=== PATIENT | female | born 1945 | race African-American/Black ===

== ENCOUNTER 2017-09-18 14:43 | Emergency (ER) | payer MEDICARE ==
[~2017-09-18] VITALS: Ht 162.6 cm; Wt 63.5 kg
[2017-09-18 14:49] VITALS: BP 116/65
--- NOTE | 2017-09-18 14:54 | Emergency Room Report ---
History of Present Illness General Chief Complaint: General Complaint Source: Patient, Family Member, Medical Record Present Illness HPI 80-year-old female, history of COPD, hypertension, ? Atrial fibrillation diagnosed last month, recent hospitalization at [facility] for one month for pneumonia, coming from [facility] for decreased oral intake and generalized weakness. Patient w/ dec appetite, and able to eat a mouth, feeling very weak. Some nausea no vomiting. No chest pain shortness of breath or abdominal pain. No diarrhea Per EMS patient was found to have a blood sugar of 72, glucose 1 was given by the [facility], on their arrival her blood sugar was 84. Her mental status is ANO x3 and conversing however just very weak. Allergies: Coded Allergies: ASPIRIN (Verified Allergy, Intermediate, 09/18/17) Patient History Past Medical History: see triage record Past Surgical History: none Pertinent Family History: none Reviewed Nursing Documentation: PMH: Agreed, PSxH: Agreed Nursing Documentation-PMH Hx Cardiac Problems: Yes - A-fib; CHF; High Cholesterol; Hypokalemia Hx Hypertension: Yes Hx COPD: Yes - Pneumonia 07/2017 Hx Diabetes: Yes Review of Systems All Other Systems: negative except mentioned in HPI Physical Exam Vital Signs Date Time Temp Pulse Resp B/P (MAP) Pulse Ox O2 Delivery O2 Flow Rate FiO2 09/18/17 14:34 97.3 60 20 96/58 60 Nasal Cannula 2.0 Sp02 EP Interpretation: reviewed, normal General Appearance: alert, mild distress, thin, other - aox3 conversing, appears fatigued Head: normocephalic, atraumatic Eyes: bilateral eye normal inspection, bilateral eye PERRL, bilateral eye EOMI ENT: normal ENT inspection, normal pharynx, normal voice, moist mucus membranes Neck: normal inspection, full range of motion, supple Respiratory: respiratory distress, speaking full sentences, other - dec breath sounds L side, chest symmetrical Cardiovascular #1: normal inspection, regular rate, rhythm, normal capillary refill Cardiovascular #2: 2+ radial (R), 2+ radial (L) Gastrointestinal: normal inspection, non tender, soft, non-distended, no guarding Musculoskeletal: normal inspection, back normal, normal range of motion, non- tender Neurologic: normal inspection, alert, oriented x3, responsive, aerotriangulation specialist III-XII nml as tested, motor strength/tone normal, sensory intact, speech normal Psychiatric: normal inspection, judgement/insight normal, memory normal Skin: normal inspection, normal color, no rash, warm/dry, well hydrated, normal turgor Procedures Critical Care Time Critical Care Time 40 minutes of CC time 72-year-old female, generalized weakness NSTEMI, renal failure VS: BORDERLINE Hypotensive PLAN: IV access, labs, lactate, troponin, Blood/Urine Cx, Abx, IVF Anticipate admission to Tele vs. CEDRIC CC time also includes review of labs, review of EMR, discussion with family and paperwork from SNF, d/w hospitalist CC could include dosing of pressors, additional Abx CC time does not include procedures Medical Decision Making Diagnostic Impression: Primary Impression: Generalized weakness Additional Impressions: Decreased oral intake Pneumonia involving left lung NSTEMI (non-ST elevated myocardial infarction) Hyperkalemia Chronic kidney disease Elevated liver enzymes Anemia DNR (do not resuscitate) DNI (do not intubate) ER Course 72-year-old female, decreased oral intake, generalized weakness DDX: Hypovolemia, dehydration, electrolyte disturbance failure to thrive Infectious: UTI/pneumonia Cardiac Plan: Obtain labs, ua, EKG, CXR IV fluids ER course: Patient left-sided pneumonia, treated with vancomycin and cefepime Initially hypotensive but blood pressure improved with fluids Elevated troponin, no STEMI on EKG, aspirin given. I spoke to patient and son, patient does not have any history of rash, anaphylaxis to aspirin heparin + drip started creatinine noted to be elevated --- son states they were seeing shell mold bonder to get dialysis soon. she still makes urine. Hyperkalemia cocktail given patient without emergent need for dialysis at this time but will need soon inpatient. Disposition: Patient is to be admitted to telemetry D/W hospitalist Dr Jennings. Please note that this Emergency Department Report was dictated using Mailsuitedeb[employer] collection specialist technology software, occasionally this can lead to erroneous entry secondary to interpretation by the dictation equipment. EKG Diagnostic Results EP Interpretation: Yes Rate: normal Rhythm: NSR ST Segments: TW flattening lateral leads ASA given to patient: Y Rhythm Strip EP Interpretation: Yes Rate: 80 Rhythm: NSR, no PVCs, no ectopy Chest X-ray CXR: Ordered: Yes 1 view Indication: sob EP interpretation: Yes Interpretation: +L sided pna Impression: +L sided pna Electronically signed by Jackie Moore MD Laboratory Tests Test 09/18/17 15:15 09/18/17 15:18 White Blood Count 14.9 K/UL (4.8-10.8) H Red Blood Count 2.99 M/UL (4.20-5.40) L Hemoglobin 9.1 G/DL (12.0-16.0) L Hematocrit 28.6 % (37.0-47.0) L Mean Corpuscular Volume 96 FL (80-99) Mean Corpuscular Hemoglobin 30.4 PG (27.0-31.0) Mean Corpuscular Hemoglobin Concent 31.8 G/DL (32.0-36.0) L Red Cell Distribution Width 16.5 % (11.6-14.8) H Platelet Count 124 K/UL (150-450) L Mean Platelet Volume 10.4 FL (6.5-10.1) H Neutrophils (%) (Auto) 82.8 % (45.0-75.0) H Lymphocytes (%) (Auto) 7.4 % (20.0-45.0) L Monocytes (%) (Auto) 7.6 % (1.0-10.0) Eosinophils (%) (Auto) 0.0 % (0.0-3.0) Basophils (%) (Auto) 2.2 % (0.0-2.0) H Prothrombin Time 15.9 SEC (9.30-11.50) H Prothrombin Time INR 1.5 (0.9-1.1) H PTT 52 SEC (23-33) H Lactic Acid Level 2.00 mmol/L (0.66-2.22) Troponin I 1.011 ng/mL (0.000-0.056) Sodium Level 137 MMOL/L (136-145) Potassium Level 6.5 MMOL/L (3.5-5.1) *H Chloride Level 99 MMOL/L (98-107) Carbon Dioxide Level 20 MMOL/L (21-32) L Anion Gap 18 mmol/L (5-15) H Blood Urea Nitrogen 173 mg/dL (7-18) H Creatinine 8.3 MG/DL (0.55-1.30) H Estimate Glomerular Filtration Rate mL/min (>60) Glucose Level 77 MG/DL (74-106) Calcium Level Pending Total Bilirubin 4.0 MG/DL (0.2-1.0) H Direct Bilirubin 3.0 MG/DL (0.0-0.3) H Aspartate Amino Transferase (AST) 1530 U/L (15-37) H Alanine Aminotransferase (ALT) 480 U/L (12-78) H Alkaline Phosphatase 530 U/L (46-116) H Pro-B-Type Natriuretic Peptide 3896 pg/mL (0-125) H Total Protein 6.7 G/DL (6.4-8.2) Albumin 1.6 G/DL (3.4-5.0) L Globulin 5.1 g/dL Albumin/Globulin Ratio 0.3 (1.0-2.7) L Microbiology Date/Time Source Procedure Growth Status 09/18/17 15:15 Nasal Nares Influenza Types A,B Antigen (MAC) - Final Complete Last Vital Signs Date Time Temp Pulse Resp B/P (MAP) Pulse Ox O2 Delivery O2 Flow Rate FiO2 09/18/17 14:34 97.3 60 20 96/58 60 Nasal Cannula 2.0 Disposition: ADMITTED INPATIENT Condition: Serious Jackie Moore M.D. Sep 18, 2017 14:54
[2017-09-18 15:51] LABS: BASOPHILS % (AUTO) 2.2 % (0.0-2.0); HEMATOCRIT 28.6 % (37.0-47.0); HEMOGLOBIN 9.1 G/DL (12.0-16.0); LYMPHOCYTES % (AUTO) 7.4 % (20.0-45.0); MEAN CORPUSCULAR VOLUME 96 FL (80-99); MONOCYTES % (AUTO) 7.6 % (1.0-10.0); NEUTROPHILS % (AUTO) 82.8 % (45.0-75.0); PLATELET COUNT 124 K/UL (150-450); RED BLOOD COUNT 2.99 M/UL (4.20-5.40); RED CELL DISTRIBUTION WIDTH 16.5 % (11.6-14.8); WHITE BLOOD COUNT 14.9 K/UL (4.8-10.8)
[2017-09-18 15:55] LABS: INR 1.5 (0.9-1.1)
[2017-09-18 16:07] LABS: ALANINE AMINOTRANSFERASE 480 U/L (12-78); ALBUMIN 1.6 G/DL (3.4-5.0); ALBUMIN/GLOBULIN RATIO 0.3 (1.0-2.7); ALKALINE PHOSPHATASE 530 U/L (46-116); ANION GAP 18 mmol/L (5-15); ASPARTATE AMINO TRANSFERASE 1530 U/L (15-37); BLOOD UREA NITROGEN 173 mg/dL (7-18); CARBON DIOXIDE 20 MMOL/L (21-32); CHLORIDE 99 MMOL/L (98-107); CREATININE 8.3 MG/DL (0.55-1.30); SODIUM 137 MMOL/L (136-145)
[2017-09-18 16:14] LABS: POTASSIUM 6.5 MMOL/L (3.5-5.1)
[2017-09-18] MEDS ORDERED: AMIODARONE HCL400 M1 ORAL ×2 (16:23)
[2017-09-18] MEDS ORDERED: ATORVASTATIN CA40 MG ORAL (16:23)
[2017-09-18] MEDS ORDERED: LASIX40 MG ORAL (16:23)
[2017-09-18] MEDS ORDERED: LEVALBUTER1.25 MG/3 IH (16:23)
[2017-09-18] MEDS ORDERED: NORVASC5 MG ORAL (16:23)
[2017-09-18] MEDS ORDERED: IPRATROPIU0.2 MG/1 M HHN (16:23)
[2017-09-18] MEDS ORDERED: NEXIUM40 MG ORAL (16:23)
[2017-09-18] MEDS ORDERED: FOLIC ACID1 MG ORAL (16:23)
[2017-09-18] MEDS ORDERED: Cefepime 1gm vial ONE (16:24)
[2017-09-18] MEDS ORDERED: Calcium Gluconate 1gm/10ml vial IVP ONE (16:30)
[2017-09-18] MEDS ORDERED: Sodium Bicarbonate 50ml Carp IV ONE (16:30)
[2017-09-18] MEDS ORDERED: PROCRIT10000 UNIT SUBQ (16:30)
[2017-09-18] MEDS ORDERED: Cefepime HCl 1 GM in NS 55 ML IV ONE (16:30)
[2017-09-18] MEDS ORDERED: COLACE100 MG ORAL (16:30)
[2017-09-18] MEDS ORDERED: Vancomycin 1 GM in NS 275 ML IVPB ONE (16:30)
[2017-09-18] MEDS ORDERED: ELIQUIS2.5 MG PO (16:30)
[2017-09-18] MEDS ORDERED: MILK OF MA2400 MG/10 ORAL (16:30)
[2017-09-18] MEDS ORDERED: Heparin 5000 units/ml inj IV ONE (16:30)
[2017-09-18] MEDS ORDERED: Heparin 25,000u/D5W 500ml 500 ML IV SCH (16:30)
[2017-09-18] MEDS ORDERED: HUMALOG SS (16:31)
[2017-09-18 16:33] LABS: CALCIUM < 5.0 MG/DL (8.5-10.1)
[2017-09-18] MEDS ORDERED: LORazepam Inj 2mg/ml 1ml IV PRN (17:00)
[2017-09-18] MEDS ORDERED: Morphine Sulfate 2mg/ml Inj IVP PRN (17:00)
[2017-09-18] MEDS ORDERED: Mylanta II UD 30ml ORAL PRN (17:00)
[2017-09-18] MEDS ORDERED: Vancomycin 1gm inj IVPB ONE (17:11)
[2017-09-18 19:27] VITALS: BP 87/48
[2017-09-18] MEDS ORDERED: Zolpidem 5mg tab ORAL PRN (21:00)
[2017-09-18] MEDS ORDERED: Miralax 17gm pkt ORAL PRN (21:00)
--- NOTE | 2017-09-18 21:49 | Diagnostic Imaging Report ---
Indication: Dyspnea Comparison: None A single view chest radiograph was obtained. Findings: There is a left upper lobe infiltrate present. The heart is mildly enlarged. There is also suspicion of mild CHF with interstitial and vascular prominence. The bones are osteopenic. No definite pleural effusions are seen. IMPRESSION: Suspected left upper lobe pneumonia. Please correlate clinically. Possible mild superimposed CHF
[2017-09-18 22:12] VITALS: BP 81/47
--- NOTE | 2017-09-18 23:23 | History and Physical ---
History of Present Illness General Date patient seen: Sep 18, 2017 Reason for Hospitalization: General Complaint Present Illness HPI 80-year-old female with PMHx of COPD, hypertension, Atrial fibrillation, recent pneumonia, DNR, DNI coming from retirement for decreased oral intake and generalized weakness. and feeling very weak. She was found to have a blood sugar of 72, glucose 1 was given by the retirement, on their arrival her blood sugar was 84. She was in renal failure and positive troponin and borderline hypotensive. Allergies: Coded Allergies: ASPIRIN (Verified Allergy, Intermediate, 09/18/17) Medication History Scheduled Amiodarone Hcl* (Amiodarone Hcl*), 200 MG ORAL EVERY 12 HOURS, (Reported) Amiodarone Hcl* (Amiodarone Hcl*), 200 MG ORAL DAILY, (Reported) Apixaban (Eliquis), 2.5 MG PO BID, (Reported) Atorvastatin Calcium* (Atorvastatin Calcium*), 40 MG ORAL BEDTIME, (Reported) Docusate Sodium* (Colace*), 100 MG ORAL TWICE A DAY, (Reported) Epoetin Hemant (Procrit), 10,000 UNIT SUBQ 3XW, (Reported) Esomeprazole Magnesium (Nexium), 40 MG ORAL DAILY, (Reported) Folic Acid* (Folic Acid*), 1 MG ORAL DAILY, (Reported) Furosemide* (Lasix*), 40 MG ORAL EVERY 12 HOURS, (Reported) Ipratropium [address] 0.5MG/2.5ML (Ipratropium [address] 0.5MG/2.5ML), 0.5 MG HHN Q6H, (Reported) Levalbuterol Hcl (Levalbuterol Hcl), 1.25 MG IH Q6HR, (Reported) Scheduled PRN Magnesium Hydroxide* (Milk Of Magnesia*), 30 ML ORAL EVERY 72 HOURS PRN for Constipation, (Reported) Miscellaneous Medications [humalog SS], (Reported) Patient History Healthcare decision maker Resuscitation status Advanced Directive on File Review of Systems Constitutional: Reports: malaise, weakness All Other Systems: negative except mentioned in HPI Physical Exam General Appearance: cachetic Lines, tubes and drains: peripheral HEENT: normocephalic, atraumatic Neck: non-tender, normal alignment Respiratory/Chest: chest wall non-tender, lungs clear Breasts: no masses Cardiovascular/Chest: normal peripheral pulses Abdomen: normal bowel sounds Genitourinary/Rectal: normal genital exam Extremities: normal range of motion Last 24 Hour Vital Signs Date Time Temp Pulse Resp B/P (MAP) Pulse Ox O2 Delivery O2 Flow Rate FiO2 09/18/17 22:12 54 19 81/47 100 Nasal Cannula 3.0 09/18/17 19:27 59 22 87/48 100 Nasal Cannula 3.0 09/18/17 14:49 97.3 67 20 116/65 97 Nasal Cannula 2.0 09/18/17 14:34 97.3 60 20 96/58 60 Nasal Cannula 2.0 Laboratory Tests Test 09/18/17 15:15 09/18/17 15:18 White Blood Count 14.9 K/UL (4.8-10.8) H Red Blood Count 2.99 M/UL (4.20-5.40) L Hemoglobin 9.1 G/DL (12.0-16.0) L Hematocrit 28.6 % (37.0-47.0) L Mean Corpuscular Volume 96 FL (80-99) Mean Corpuscular Hemoglobin 30.4 PG (27.0-31.0) Mean Corpuscular Hemoglobin Concent 31.8 G/DL (32.0-36.0) L Red Cell Distribution Width 16.5 % (11.6-14.8) H Platelet Count 124 K/UL (150-450) L Mean Platelet Volume 10.4 FL (6.5-10.1) H Neutrophils (%) (Auto) 82.8 % (45.0-75.0) H Lymphocytes (%) (Auto) 7.4 % (20.0-45.0) L Monocytes (%) (Auto) 7.6 % (1.0-10.0) Eosinophils (%) (Auto) 0.0 % (0.0-3.0) Basophils (%) (Auto) 2.2 % (0.0-2.0) H Prothrombin Time 15.9 SEC (9.30-11.50) H Prothromb Time International Ratio 1.5 (0.9-1.1) H Activated Partial Thromboplast Time 52 SEC (23-33) H Lactic Acid Level 2.00 mmol/L (0.66-2.22) Troponin I 1.011 ng/mL (0.000-0.056) Sodium Level 137 MMOL/L (136-145) Potassium Level 6.5 MMOL/L (3.5-5.1) *H Chloride Level 99 MMOL/L (98-107) Carbon Dioxide Level 20 MMOL/L (21-32) L Anion Gap 18 mmol/L (5-15) H Blood Urea Nitrogen 173 mg/dL (7-18) H Creatinine 8.3 MG/DL (0.55-1.30) H Estimat Glomerular Filtration Rate mL/min (>60) Glucose Level 77 MG/DL (74-106) Calcium Level < 5.0 MG/DL (8.5-10.1) *L Total Bilirubin 4.0 MG/DL (0.2-1.0) H Direct Bilirubin 3.0 MG/DL (0.0-0.3) H Aspartate Amino Transf (AST/SGOT) 1530 U/L (15-37) H Alanine Aminotransferase (ALT/SGPT) 480 U/L (12-78) H Alkaline Phosphatase 530 U/L (46-116) H Pro-B-Type Natriuretic Peptide 3896 pg/mL (0-125) H Total Protein 6.7 G/DL (6.4-8.2) Albumin 1.6 G/DL (3.4-5.0) L Globulin 5.1 g/dL Albumin/Globulin Ratio 0.3 (1.0-2.7) L Microbiology Date/Time Source Procedure Growth Status 09/18/17 15:15 Nasal Nares Influenza Types A,B Antigen (MAC) - Final Complete Height (Feet): 5 Height (Inches): 4.00 Weight (Pounds): 140 Medications Current Medications Medications (Trade) Dose Ordered Sig/Inga Route PRN Reason Start Time Stop Time Status Last Admin Dose Admin Acetaminophen (Tylenol) 650 mg Q4H PRN ORAL fever>100.5 09/18/17 17:00 10/18/17 16:59 Al Hydroxide/Mg Hydroxide (Mylanta II) 30 ml Q6H PRN ORAL dyspepsia 09/18/17 17:00 10/18/17 16:59 Amiodarone HCl (Cordarone) 200 mg DAILY ORAL 09/19/17 09:00 10/19/17 08:59 Clonidine HCl (Catapres) 0.1 mg Q4H PRN ORAL for sbp more than 160 09/18/17 17:00 10/18/17 16:59 Dextrose (Dextrose 50%) STAT PRN IV Hypoglycemia 09/18/17 17:00 10/18/17 16:59 Heparin Sodium (Porcine) (Heparin 5000 units/ml) 5,000 units EVERY 12 HOURS SUBQ 09/18/17 21:00 10/18/17 20:59 Heparin Sodium/ Dextrose 500 ml @ 15.241 mls/ hr adjust per protocol IV 09/18/17 16:30 10/18/17 16:29 09/18/17 17:07 Lorazepam (Ativan 2mg/ml 1ml) 0.5 mg Q4H PRN IV For Anxiety 09/18/17 17:00 09/25/17 16:59 Morphine Sulfate (Morphine Sulfate) 1 mg Q4H PRN IVP For Pain 09/18/17 17:00 09/25/17 16:59 Ondansetron HCl (Zofran) 4 mg Q6H PRN IVP Nausea & Vomiting 09/18/17 17:00 10/18/17 16:59 Polyethylene Glycol (Miralax) 17 gm HSPRN PRN ORAL Constipation 09/18/17 21:00 10/18/17 20:59 Zolpidem Tartrate (Ambien) 5 mg HSPRN PRN ORAL Insomnia 09/18/17 21:00 09/25/17 20:59 Assessment/Plan Problem List: (1) Non-ST elevation (NSTEMI) myocardial infarction ICD Codes: I21.4 - Non-ST elevation (NSTEMI) myocardial infarction SNOMED: 546182953 (2) Aspiration pneumonia ICD Codes: J69.0 - Pneumonitis due to inhalation of food and vomit SNOMED: 230057134 (3) ATN (acute tubular necrosis) ICD Codes: N17.0 - Acute kidney failure with tubular necrosis SNOMED: 97950447 (4) DNR (do not resuscitate) ICD Codes: Z66 - Do not resuscitate SNOMED: 544912951 Assessment/Plan check cultures IV fluids iv abx cardio to see symptomatic treatment comfort care. very poor prognosis, considering DUSTY COELHO Sep 18, 2017 23:23
[2017-09-18] MEDS: Heparin 5000 units/ml inj SUBQ SCH (23:39)
[2017-09-19] VITALS (12 sets, daily range): BP systolic 47–141; BP diastolic 26–89
[2017-09-19 05:43] LABS: BASOPHILS % (AUTO) 1.6 % (0.0-2.0); HEMATOCRIT 30.1 % (37.0-47.0); HEMOGLOBIN 9.5 G/DL (12.0-16.0); MEAN CORPUSCULAR VOLUME 97 FL (80-99); MONOCYTES % (AUTO) 7.2 % (1.0-10.0); NEUTROPHILS % (AUTO) 83.1 % (45.0-75.0); PLATELET COUNT 105 K/UL (150-450); RED BLOOD COUNT 3.11 M/UL (4.20-5.40); RED CELL DISTRIBUTION WIDTH 16.8 % (11.6-14.8)
[2017-09-19 06:37] LABS: CREATINE KINASE 8199 U/L (26-308); PHOSPHORUS > 9.0 MG/DL (2.5-4.9)
[2017-09-19 06:44] LABS: ALANINE AMINOTRANSFERASE 492 U/L (12-78); ALBUMIN 1.5 G/DL (3.4-5.0); ALBUMIN/GLOBULIN RATIO 0.3 (1.0-2.7); ALKALINE PHOSPHATASE 495 U/L (46-116); ANION GAP 21 mmol/L (5-15); ASPARTATE AMINO TRANSFERASE 1518 U/L (15-37); BILIRUBIN,TOTAL 3.6 MG/DL (0.2-1.0); BLOOD UREA NITROGEN 172 mg/dL (7-18); CARBON DIOXIDE 17 MMOL/L (21-32); CHLORIDE 101 MMOL/L (98-107); CHOLESTEROL 121 MG/DL (< 200); HDL CHOLESTEROL 13 MG/DL (40-60); POTASSIUM 5.6 MMOL/L (3.5-5.1); SODIUM 139 MMOL/L (136-145); TRIGLYCERIDES 136 MG/DL (30-150)
[2017-09-19 07:34] LABS: PHOSPHORUS 11.9 MG/DL (2.5-4.9)
[2017-09-19 08:22] LABS: BILIRUBIN,DIRECT 3.1 MG/DL (0.0-0.3); CALCIUM < 5.0 MG/DL (8.5-10.1)
[2017-09-19] MEDS: Heparin 5000 units/ml inj SUBQ SCH (09:00)
[2017-09-19] MEDS ORDERED: Amiodarone 200mg tab ORAL SCH (09:00)
--- NOTE | 2017-09-19 09:44 | Pulmonolgy Critical Care Note ---
Critical Care - Asmt/Plan Problems: (1) Aspiration pneumonia (2) Non-ST elevation (NSTEMI) myocardial infarction (3) ATN (acute tubular necrosis) (4) DNR (do not resuscitate) Respiratory: adjust FIO2 Cardiac: continue to monitor HR/BP Renal: F/U I&O, keep IV fluid Infectious Disease: check cultures, continue antibiotics Gastrointestinal: hold feedings Endocrine: monitor blood sugar Hematologic: monitor H/H Neurologic: PRN Ativan, PRN Morphine Notes Reviewed: cardio, renal Discussed with: nurses, consultants Critical Care - Objective Last 24 Hour Vital Signs Date Time Temp Pulse Resp B/P (MAP) Pulse Ox O2 Delivery O2 Flow Rate FiO2 09/19/17 08:34 60 14 141/74 100 Nasal Cannula 2.0 09/19/17 06:31 59 16 115/62 100 Nasal Cannula 2.0 09/19/17 03:23 56 16 120/70 100 Nasal Cannula 2.0 09/19/17 00:10 55 12 97/63 100 Nasal Cannula 2.0 09/18/17 22:12 54 19 81/47 100 Nasal Cannula 3.0 09/18/17 19:27 59 22 87/48 100 Nasal Cannula 3.0 09/18/17 14:49 97.3 67 20 116/65 97 Nasal Cannula 2.0 09/18/17 14:34 97.3 60 20 96/58 60 Nasal Cannula 2.0 Status: obtunded Condition: critical HEENT: atraumatic Neck: full ROM Heart: HR/BP stable, HR/BP unstable Abdomen: non-tender, feeding tube Extremities: no C/C/E Micro: Microbiology Date/Time Source Procedure Growth Status 09/18/17 15:15 Nasal Nares Influenza Types A,B Antigen (MAC) - Final Complete Accucheck: 84 Critical Care - Subjective ROS Limited/Unobtainable: Yes Condition: critical EKG Rhythm: Sinus Rhythm I&O: Intake and Output 09/18/17 09/19/17 19:00 07:00 Intake Total 50 ml 1000 ml Balance 50 ml 1000 ml Intake Oral 50 ml IV Total 1000 ml CXR: no change DUSTY MASSEY Sep 19, 2017 09:44
[2017-09-19] MEDS ORDERED: Sodium Chloride 500ML 500 ML IV ONE (15:00)
[2017-09-19] MEDS ORDERED: Cefepime HCl 500 MG in D5W 55 ML IV SCH (17:00)
--- NOTE | 2017-09-19 17:56 | Cardiology Report ---
APPROVED REPORT EKG Measurement Heart [id number] [id number] Sinus bradycardia Nonspecific intraventricular block Nonspecific T wave abnormality Abnormal ECG
--- NOTE | 2017-09-19 19:14 | Cardiology Progress Note ---
Assessment/Plan Assessment/Plan [id number] Objective Last 24 Hour Vital Signs Date Time Temp Pulse Resp B/P (MAP) Pulse Ox O2 Delivery O2 Flow Rate FiO2 09/19/17 13:15 98.0 60 17 86/57 98 Nasal Cannula 2.0 09/19/17 10:35 98.2 56 16 110/89 98 Nasal Cannula 2.0 09/19/17 08:34 60 14 141/74 100 Nasal Cannula 2.0 09/19/17 06:31 59 16 115/62 100 Nasal Cannula 2.0 09/19/17 03:23 56 16 120/70 100 Nasal Cannula 2.0 09/19/17 00:10 55 12 97/63 100 Nasal Cannula 2.0 09/18/17 22:12 54 19 81/47 100 Nasal Cannula 3.0 09/18/17 19:27 59 22 87/48 100 Nasal Cannula 3.0 Intake and Output 09/18/17 09/19/17 19:00 07:00 Intake Total 50 ml 1000 ml Balance 50 ml 1000 ml Intake Oral 50 ml IV Total 1000 ml Laboratory Tests Test 09/19/17 05:28 09/19/17 17:15 White Blood Count 11.0 K/UL (4.8-10.8) H Red Blood Count 3.11 M/UL (4.20-5.40) L Hemoglobin 9.5 G/DL (12.0-16.0) L Hematocrit 30.1 % (37.0-47.0) L Mean Corpuscular Volume 97 FL (80-99) Mean Corpuscular Hemoglobin 30.5 PG (27.0-31.0) Mean Corpuscular Hemoglobin Concent 31.5 G/DL (32.0-36.0) L Red Cell Distribution Width 16.8 % (11.6-14.8) H Platelet Count 105 K/UL (150-450) L Mean Platelet Volume 8.7 FL (6.5-10.1) Neutrophils (%) (Auto) 83.1 % (45.0-75.0) H Lymphocytes (%) (Auto) 8.0 % (20.0-45.0) L Monocytes (%) (Auto) 7.2 % (1.0-10.0) Eosinophils (%) (Auto) 0.0 % (0.0-3.0) Basophils (%) (Auto) 1.6 % (0.0-2.0) Sodium Level 139 MMOL/L (136-145) Potassium Level 5.6 MMOL/L (3.5-5.1) H Chloride Level 101 MMOL/L (98-107) Carbon Dioxide Level 17 MMOL/L (21-32) L Anion Gap 21 mmol/L (5-15) H Blood Urea Nitrogen 172 mg/dL (7-18) H Creatinine 8.0 MG/DL (0.55-1.30) H Estimat Glomerular Filtration Rate mL/min (>60) Glucose Level 69 MG/DL (74-106) L Hemoglobin A1c 5.7 % (4.3-6.0) Osmolality 346 mOsm/kg (297-317) H Lactic Acid Level 2.60 mmol/L (0.66-2.22) H Uric Acid 15.0 MG/DL (2.6-7.2) H Calcium Level < 5.0 MG/DL (8.5-10.1) *L Phosphorus Level 11.9 MG/DL (2.5-4.9) H Magnesium Level 2.1 MG/DL (1.8-2.4) Total Bilirubin 3.6 MG/DL (0.2-1.0) H Direct Bilirubin 3.1 MG/DL (0.0-0.3) H Aspartate Amino Transf (AST/SGOT) 1518 U/L (15-37) H Alanine Aminotransferase (ALT/SGPT) 492 U/L (12-78) H Alkaline Phosphatase 495 U/L (46-116) H Total Creatine Kinase 8199 U/L (26-308) H Total Protein 6.4 G/DL (6.4-8.2) Albumin 1.5 G/DL (3.4-5.0) L Globulin 4.9 g/dL Albumin/Globulin Ratio 0.3 (1.0-2.7) L Triglycerides Level 136 MG/DL (30-150) Cholesterol Level 121 MG/DL (< 200) LDL Cholesterol 69 mg/dL (<100) HDL Cholesterol 13 MG/DL (40-60) L Cholesterol/HDL Ratio 9.3 (3.3-4.4) H Thyroid Stimulating Hormone (TSH) 5.129 uiU/mL (0.358-3.740) Free Thyroxine 0.72 NG/DL (0.76-1.46) L Free Triiodothyronine 0.8 pg/mL (2.3-4.2) L Cortisol Pending Random Vancomycin Level 10.6 ug/mL Microbiology Date/Time Source Procedure Growth Status 09/18/17 15:15 Nasal Nares Influenza Types A,B Antigen (MAC) - Final Complete CAMILLE EDWARDS Sep 19, 2017 19:14
[2017-09-19] MEDS ORDERED: Vancomycin 750mg/NS 250ml IVPB ONE (20:00)
[2017-09-19] MEDS ORDERED: Sodium Bicarbonate 50ml Carp IV ONE (21:45)
[2017-09-19] MEDS ORDERED: Calcium Gluconate 1gm/10ml vial IVP ONE (21:45)
[2017-09-20] VITALS: BP 36/21
[2017-09-20] MEDS ORDERED: Atropine Sulfate 0.4mg/ml inj 20ML IVP ONE
[2017-09-20] MEDS ORDERED: Atropine Inj 1mg/10ml Syr IVP ONE
[2017-09-20 00:30] VITALS: BP 0/0
--- NOTE | 2017-09-20 09:43 | Consultation ---
DATE OF CONSULTATION: 09/19/2017 CARDIOLOGY CONSULTATION CONSULTING PHYSICIAN: Richard Parada M.D. ATTENDING/REFERRING PHYSICIAN: Dominick Jennings M.D. HISTORY OF PRESENT ILLNESS: This is an elderly female, who is a resident from convalescent facility and was transferred to the emergency room at the [facility] today because of shortness of breath. The patient has been previously hospitalized at [facility]. She is rather a poor historian. She denies any chest pain. Admits to having shortness of breath. Admits to having some cough earlier today, but mainly shortness of breath. There is no palpitation and no dizziness at this time. PAST MEDICAL HISTORY: As much as I obtained from the old records is history of blood-loss anemia with hemoglobin previously down to 6.8, anticoagulation previously was held because of that. She had a lesion in the stomach that was treated, moderately severe gastritis, scattered diverticula were noted on colonoscopy, also has history of respiratory failure, status post intubation and extubation, weaned off CPAP, consolidation was noted on chest x-ray previously with small right pleural effusion. She has history of sepsis and possible urinary tract infection, atrial fibrillation with rapid ventricular response with SANDI-VASc score of 3, on Eliquis previously, status post heparin drip with previous diastolic dysfunction on echocardiogram and had converted to sinus rhythm previously, history of hypokalemia, hypomagnesemia, acute renal failure, cocaine use, congestive heart failure, hyperlipidemia, COPD as well as folic acid deficiency recorded in the patient's old chart. MEDICATIONS: Listed elsewhere. ALLERGIES: She is allergic to aspirin, the reaction is unknown. SOCIAL HISTORY: She apparently had history of cocaine abuse as well as tobacco in the past, but the details are not known. REVIEW OF SYSTEMS: GASTROINTESTINAL: She denies any nausea or vomiting at this time, however, the nurse indicates she had some bright red blood per rectum earlier today when she was placed on anticoagulation and subsequently that was discontinued. She has had cough. PHYSICAL EXAMINATION: GENERAL: Shows to be elderly female, in no respiratory distress. She is calm. VITAL SIGNS: Blood pressure has been in the 80s and most recently in 70s, but she has had as high as 141/74, heart rate of 60, and temperature 98 degrees. NECK: Supple. LUNGS: Appear to be clear mostly. She does have some crackles on the right base. CARDIAC: Regular rate and rhythm. A faint systolic ejection murmur is noted. There is no RV lift, heaves, or thrills noted. ABDOMEN: Soft, nontender. Positive bowel sounds. EXTREMITIES: A 1+ edema in lower extremities bilaterally. NEUROLOGICAL: She is arousable and responsive. LABORATORY AND DIAGNOSTIC DATA: White count of 11, hemoglobin 9.5, and platelet count of 105,000. Sodium is 139, potassium 5.6, chloride 101, bicarbonate 17, BUN of 172, and creatinine of 8. Her glucose level is 6. Calcium less than 5. Uric acid of 15 and lactic acid is 2.6. Phosphorus of 11.9. ALT of 492. AST of 1500. Bilirubin of 3.6. Alkaline phosphatase of 495. Total CK of 8100. Total cholesterol of 121 with LDL of 69 and HDL of 13. TSH of 5.29. Her troponin was 1.011 originally. Her electrocardiogram shows normal sinus rhythm, nonspecific T-wave abnormalities being noted. Imaging, she had a chest x-ray that shows left upper lobe pneumonia, possible mild superimposed congestive heart failure. ASSESSMENT AND PLAN: 1. [id number] myocardial infarction. 2. Prior history of atrial fibrillation converted to sinus rhythm, maintained on amiodarone, previously on anticoagulation. 3. Possibility of pneumonia. 4. Chronic obstructive pulmonary disease. 5. History of heart failure, possibly diastolic in origin. 6. History of cocaine use previously. 7. Aspirin allergy. 8. Renal failure. 9. Abnormal liver function test with evidence of elevation of AST, ALT as well as CPK as well as alkaline phosphatase . Dr. Jennings, this patient was seen in cardiac consultation. The patient has a Physician Order for Life-Sustaining Treatment form indicating to be resuscitated. The treatment is to be focused on comfort and no artificial means of respiration. No advanced directives by her choosing apparently. This was signed in the patient's chart in 09/2017. Her medication list is not completely known to me, but she had been on some Eliquis it looks like prior to coming in to this hospital as well as some Lasix. Her blood pressure does not allow significant diuresis, but cortisol level is pending at this time and she should be maintained on amiodarone. Richard Parada M.D. DR: Khadar JOB#: [id number] CC:
== END 2017-09-20 00:40 | disposition expired ==
LOC: EDBD 14:43 → EMR 15:53 → EDBEDREQSVC 16:02 → 2E 16:19 → 2W 16:19 → UNDOADMIN 16:19 → EDBEDREQ 16:23 → ENRESERV 09-19 07:30 → 2W 09-19 23:32 → EMR 09-20 00:40
DX: R53.1 Weakness (principal); J18.9 Pneumonia, unspecified organism; I21.4 Non-ST elevation (NSTEMI) myocardial infarction; E87.5 Hyperkalemia; I12.9 Hypertensive chronic kidney disease with stage 1 through stage 4 chronic kidney disease, or unspecified chronic kidney disease; N18.9 Chronic kidney disease, unspecified; E11.9 Type 2 diabetes mellitus without complications; I11.0 Hypertensive heart disease with heart failure; I50.9 Heart failure, unspecified; J44.9 Chronic obstructive pulmonary disease, unspecified; Z66 Do not resuscitate; D64.9 Anemia, unspecified; R79.89 Other specified abnormal findings of blood chemistry; Z88.6 Allergy status to analgesic agent
CPT/HCPCS: 36415; 71045; 80053; 80061; 80202; 82248; 82533; 82550; 83036; 83605; 83735; 83880; 83930; 84100; 84439; 84443; 84481; 84484; 84550; 85025; 85610; 85730; 86710; 87040; 87081; 93005; 96361; 96365; 96366; 96372; 96375; 96376; 97110; 97161; 99291; J0461; J0610; J0692; J1644; J1815; J3370